=== PATIENT | female | born 1950 | race Two or more races ===

== ENCOUNTER 2022-04-02 11:27 | Outpatient (REF) | payer MEDICAID, OTHER, SELFPAY ==
--- NOTE | ~2022-04-02 | XR_ITS ---
EXAMINATION: XR LUMBOSACRAL SPINE CLINICAL INFORMATION: Low back pain. COMPARISON: None TECHNIQUE: Three views of the lumbosacral spine. FINDINGS: Grade 1 anterolisthesis of L5 on S1. No acute compression deformity. Posterior elements are intact. Disc height loss and facet arthropathy with neural foraminal encroachment noted at L5-S1. SI joints are symmetric. No significant paraspinal soft tissue abnormalities. Scattered atherosclerotic disease of the abdominal aorta. Calcified bodies in the soft tissues of the gluteal region, likely injection sites. XR/XR lumbar spine 2-3V IMPRESSION: 1. No acute compression deformity. 2. Grade 1 anterolisthesis of L5 on S1 with disc height loss, facet arthropathy and neural foraminal encroachment.
== END 2022-04-02 11:28 | disposition home or self-care (01) ==
LOC: HO.XRAY 11:27
PROVIDERS: PCP Internal Medicine; Visit Provider Internal Medicine
DX: M54.50 Low back pain, unspecified (principal); G89.29 Other chronic pain
CPT/HCPCS: 72100

== ENCOUNTER → 2022-05-25 15:00 | Outpatient (REF) | payer MEDICAID, OTHER, SELFPAY ==
--- NOTE | 2022-05-25 15:04 | CA_ITS ---
Transthoracic Echocardiogram Patient (Last, First, Middle): Nelda Woods, Gender: Female Date of : 1950 Age: 72 Procedure Date: 05/25/2022 Procedure Type: Transthoracic Echocardiogram Location: OP Height: 160.02 cm Weight: 92.08 kg BSA: 1.95 m2 Heart Rate: bpm BP: 133 / 80 mmHg Food Server: Referring MD: Janny Gant MD Senior Production Manager: Rhett Jiménez MD Symptoms: I10 HTN, I50.9 HF, LOWER EXTREMITY EDEMA Study Quality: Good ECG Rhythm: Sinus Conclusions: - 1. More LV systolic function with mild LVH with grade 1 diastolic dysfunction 2. Normal cardiac valvular Dopplers 3. Normal RV systolic pressure 4. No gross pericardial effusion Findings Left Ventricle Normal left ventricular size and systolic function. There is mildly increased left ventricular wall thickness. The visually estimated ejection fraction is between 60-65%. Spectral Doppler is indicative of an impaired relaxation filling pattern. E/E prime ratio is <8, consistent with normal filling pressures. Evidence suggests grade I (mild) diastolic dysfunction. Peak GLS is -19.3%, within normal limits. Right Ventricle Normal right ventricular cavity size and systolic function. Atria The left atrium is normal in size. There is a mobile atrial septum noted. Interatrial shunt cannot be excluded. The right atrium is normal in size. Aortic Valve Normal aortic valve structure and function. There is no aortic valve stenosis. There is no aortic valve regurgitation. Mitral Valve Normal mitral valve structure and function. There is trace mitral valve regurgitation. There is no mitral valve stenosis. Pulmonic Valve The pulmonic valve is likely normal. Tricuspid Valve Normal tricuspid valve structure. There is trace tricuspid valve regurgitation. The right ventricular systolic pressure is normal. The right ventricular systolic pressure is 21 mmHg. Normal right atrial pressure. There is no evidence of pulmonary hypertension. Great Vessels All visible segments of the aorta are normal in size. The pulmonary artery was not well visualized. Venous The inferior vena cava is normal in size and collapses greater than 50% with inspiration. Pericardium/Pleural There is no evidence of pericardial effusion. Prior Study Comparison No prior study available for comparison. Measurements 2D Linear Measurements IVSd: 1.32 0.6-0.9/0.6-1.0 cm LVIDd: 3.35 3.9-5.3/4.2-5.9 cm LVIDd Index: 1.72 2.4-3.2/2.2-3.1 cm/m2 LVIDs: 2.21 2.0-3.6 cm LVPWd: 1.37 0.7-1.1 cm Ao Root: 3.20 2.1-3.5 cm LA Diam: 2.90 2.7-3.8/3.0-4.0 cm LAIDs Index: 1.49 1.5-2.3 cm/m2 LV Mass: 190.06 67-162/88-224 g LV Mass Index: 97.47 43-95/49-115 g/m2 LVOT Diam: 2.40 3.0+(-)1.3 cm Mitral Valve MV Pk E: 0.54 MV PK A: 1.13 MV Decel Time: 138.00 E/A: 0.50 E'Lateral: 5.55 E'Medial: 3.15 E/E' Med: 17.00 E/E' Lat: 9.70 PHT: 41.00 MVA PHT: 5.37 Decel Alcorn: 3.87 Aortic Valve AoV Pk Murali: 1.24 AoV Mn Murali: 0.79 AoV VTI: 0.24 AoV Pk Grad: 6.00 Aov Mn Grad: 3.00 BIN Cont.VTI: 3.90 LVOT LVOT Pk Murali: 1.09 LVOT Mn Murali: 0.76 LVOT VTI: 0.21 LVOT Pk Grad: 5.00 LVOT Mn Grad: 3.00 LVOT Diam: 2.40 LVOT Area: 4.52 Diastolic Function MV Pk E: 0.54 MV Pk A: 1.13 E/A: 0.50 E'Medial: 3.15 E/E' Med: 17.00 E' Laterial: 5.55 E/E' Lat: 9.70 Right Ventricle TAPSE (mm): 19.00 Tricuspid Valve TR Pk Murali: 2.14 TR Pk Grad: 18.00 RA Press: 3.00 RVSP: 21.00 Great Vessels Aorta Ao Root-2D: 3.20 2.0-3.7 cm Ao Asc: 3.50 2.1-3.4 cm Pulmonary Valve PV Pk Murali: 1.08 Peak PV Grad: 5.00 Updated in Other Vendor System with Status of Final Rhett Jiménez MD electronically signed on 05/26/2022 12:48:16 PM with status of Final
== END ==
LOC: HO.CARD 15:00
PROVIDERS: Visit Provider Family Medicine
DX: R60.9 Edema, unspecified (principal)
CPT/HCPCS: 93306; 93356

== ENCOUNTER 2024-03-25 09:06 | Outpatient (REF) | payer MEDICAID, SELFPAY ==
--- OUTSIDE RECORDS SUMMARY | 2024-03-25 10:05 | XMS_ITS | Encounter Summary ---
Author Organization [employer] Address [address] [facility] [address] [place] [address] Care Team Providers Care Coroner Transport Technician Name Role Phone Laverne Sauceda MD Primary Care Provider [phone] Reason for Visit * Reason Onset Date Comments chart prep 03/19/2024 Encounter Details Date Type Department Care Team ([facility] st Contact Info) Description 03/19/2024 Telephone [facility] MED & PEDS [address] [place] [address] Laverne Sauceda MD [address] [place] [address] chart prep Social History Tobacco Use Types Packs/Day Years Used Date Smoking Tobacco: Never Passive Smoke Exposure: Never Smokeless Tobacco: Never Alcohol Use Standard Drinks/Week Comments Never 0 (1 standard drink = 0.6 oz pur e alcohol) Depression Answer Date Recorded Patient Health Questionnaire-9 Score 0 03/23/2022 Housing Stability Answer Date Recorded What is your housing situation today? Not on macho e 03/25/[address] you li ve. Do you have problems with any of the following? None of the above 03/25/2023 Food Insecurity Answer Date Recorded Within the past 12 months, y ou worried that your food would run out before you got money to buy more: Never True 12/22/2022 Within the past 12 months,th e food you bought just didn't last and you didn't have enough money to get more: Never True 12/2022 Transportation Answer Date Recorded In the past 12 months, has l ack of transportation kept you from medical appts, meetings, work or from getting things needed for daily living? No 12/22/2022 Utilities Answer Date Recorded In the past 12 months, has t he electric, gas, oil or water company threatened to shut off services in your home? No 12/22/2022 Depression Answer Date Recorded Patient Health Questionnaire-2 Score 0 03/23/2022 Comments Unknown Sex and Gender Information Value Date Recorded Sex Assigned at Female 12/11/2021 10:37 AM EDT Legal Sex Female 10:37 AM EDT Gender Identity Female 03/23/2022 2:52 PM EST Sexual Orientation Straight 03/23/2022 2: 52 PM EST documented as of this encounter Miscellaneous Notes * Telephone Encounter - Vanessa Zhang [place] - 03/19/2024 11:22 AM EST Chart Prep Labs: none Images: none Vaccines due: yes Referrals: none Screenings: none Overdue care gaps: Sbirt, SDOH, PHQ-9 documented in this encounter Plan of Treatment Upcoming Encounters Date Type Department Care Team (Late st Contact Info) Description 04/20/2024 10:00 AM EDT Clinical Support [facility] MED & PEDS [address] [place] [address] documented as of this encounter Visit Diagnoses Not on filedocumented in this encounter Additional Health Concerns Assessment Noted Time PHQ-9 Depression Total Score: 0 03/23/19 23 3:16 PM EST documented as of this encounter Care Teams Coroner Transport Technician Relationship Specialty Start Date End Date Laverne Sauceda MD [address] [place] [address] PCP - General Internal Medicine 07/28/19 documented as of this encounter
--- OUTSIDE RECORDS SUMMARY | 2024-03-25 10:05 | XMS_ITS | Encounter Summary ---
Author Organization [employer] Address [address] [place] [address] Care Team Providers Care Director Communications Name Role Phone Laverne Sauceda MD Primary Care Provider [phone] Reason for Visit * Reason Comments Pre-visit Planning SDOH unable to compl ete, number disconnected Encounter Details Date Type Department Care Team ([facility] st Contact Info) Description 03/16/2024 Patient Outreach [facility] MED & PEDS [address] [place] [address] Laverne Sauceda MD [address] [place] [address] Pre-visit Planning (SDOH unable to complete, number disconnected) Social History Tobacco Use Types Packs/Day Years [...] PM EST documented as of this encounter Progress Notes * Crys Blount - 03/16/2024 4:26 PM EST DAMIÁN Harrell placed outbound call to patient to complete pre-visit planning. No answer at this time. Patient name and were not confirmed. CC unable to leave a message due to number not in service documented in this encounter Plan of Treatment Upcoming Encounters Date Type Department Care Team (Late st Contact Info) Description 04/20/2024 10:00 AM EDT Clinical Support [facility] MED & PEDS [address] [place] [address] documented as of this encounter Visit Diagnoses Not on filedocumented in this encounter Additional Health Concerns Assessment Noted Time PHQ-9 Depression Total Score: 0 03/23/19 23 3:16 PM EST documented as of this encounter Care Teams Director Communications Relationship Specialty Start Date End Date Laverne Sauceda MD [address] [place] [address] PCP - General Internal Medicine 07/28/19 documented as of this encounter
--- OUTSIDE RECORDS SUMMARY | 2024-03-25 10:05 | XMS_ITS | Encounter Summary ---
Author Organization [employer] Address [address] [place] [address] [address], [place] [address] Care Team Providers Care Commercial Loan Underwriter Name Role Phone Laverne Sauceda MD Primary Care Provider [phone] Reason for Visit * Reason Comments Hypertension Joint Pain Encounter Details Date Type Department Care Team ([facility] Contact Info) Description 03/23/2024 11:30 AM EST Office Visit [facility] MED & PEDS [address] [place], [place] [id number] Laverne Sauceda MD [address] [place] [address] Primary hypertension (Primary Dx); Hypercholesterolemia; Epigastric pain; Primary hypertension; Encounter for immunization; Dietary counseling; Exercise counseling; Class 3 severe obesity due to excess calories with serious comorbidity and body mass index (BMI) of 40.0 to 44.9 in adult (CMS/[facility]) Social History Tobacco Use Types Packs/Day Years Used Date Smoking Tobacco: Never Passive Smoke Exposure: Never Smokeless Tobacco: Never Alcohol Use Standard Drinks/Week Comments Never 0 (1 standard drink = 0.6 oz pur e alcohol) Depression Answer Date Recorded Patient Health Questionnaire-9 Score 0 03/23/2024 Patient Health Questionnaire-9 Score 0 03/23/2024 Last PHQ-9: Questionnaire Data Not on file 0 03/23/2024 Housing Stability Answer Date Recorded What is your housing situation today? I have eran fajardo 03/23/[address] you li ve. Do you have problems with any of the following? None of the above 03/23/2024 Food Insecurity Answer Date Recorded Within the past 12 months, y ou worried that your food would run out before you got money to buy more: Never True 03/23/2024 Within the past 12 months,th e food you bought just didn't last and you didn't have enough money to get more: Never True 11/2024 Transportation Answer Date Recorded In the past 12 months, has l ack of transportation kept you from medical appts, meetings, work or from getting things needed for daily living? No 03/23/2024 Utilities Answer Date Recorded In the past 12 months, has t he electric, gas, oil or water company threatened to shut off services in your home? No 03/23/2024 Depression Answer Date Recorded Patient Health Questionnaire-2 Score 0 03/23/2024 Internet Access Answer Date Recorded Internet Access Q1 Yes 03/23/2024 Internet Access Q2 Not on file 03/23/2024 Comments Unknown Sex and Gender Information Value Date Recorded Sex Assigned at Female 12/11/2021 10:37 AM EDT Legal Sex Female 10:37 AM EDT Gender Identity Female 03/23/2022 2:52 PM EST Sexual Orientation Straight 03/23/2022 2: 52 PM EST documented as of this encounter Last Filed Vital Signs Vital Sign Reading Time Taken Comments Blood Pressure 159/100 03/23/2024 11:30 AM EST Pulse 91 03/23/2024 11:30 AM EST Temperature 36.7 ??C (98 ??F) 03/23/2024 11:30 AM EST Respiratory Rate 20 03/23/2024 11:30 AM EST Oxygen Saturation 95% 03/23/2024 11:30 AM EST Inhaled Oxygen Concentration - - Weight 98 kg (216 lb) 03/23/2024 11:30 AM EST Height 154.9 cm (5' 1 ) 03/23/2024 11:30 AM EST Body Mass Index 40.81 03/23/2024 11:30 AM EST documented in this encounter Progress Notes * Laverne Sauceda MD - 03/23/2024 11:30 AM EST Subjective Patient ID: Nelda Woods is a 74 y.o. female who presents for Hypertension and Joint Pain. Hypertension This is a chronic problem. The problem has been waxing and waning since onset. Pertinent negatives include no anxiety, blurred vision, chest pain, malaise/fatigue, neck pain, orthopnea, peripheral edema, PND or shortness of breath. Pt Was in [facility] during 2023. Came back to the [place] 1 month ago. Pt claims compliance to her medication. Came with her son tot he office visit. No fever or other constitutional symptoms reported. H/o chronic joint pain: Low back, hips, Knees, etc. Worse when she is in the cold weather. Denies morning stiffness. Patient Active Problem List Diagnosis Hypertensive disorder Lumbar back pain Hypercholesterolemia Epigastric pain Current Outpatient Medications on File Prior to Visit Medication Sig Dispense Refill Diclofenac Sodium (Voltaren) 1 % gel To use up to 4 times a day on the affected area. 100 g 1 famotidine (Pepcid) 20 MG tablet TAKE ONE TABLET TWICE DAILY 60 tablet 11 losartan (Cozaar) 100 MG tablet TAKE ONE TABLET EVERY MORNING 90 tablet 3 metOLazone (Zaroxolyn) 2.5 MG tablet TAKE ONE TABLET EVERY MORNING 90 tablet 3 simvastatin (Zocor) 20 MG tablet Take 2 tablets (40 mg) by mouth in the morning. 90 tablet 3 simvastatin (Zocor) 40 MG tablet TAKE ONE TABLET DAILY 30 tablet 11 [DISCONTINUED] metoprolol succinate XL (Toprol-XL) 25 MG 24 hr tablet TAKE ONE TABLET EVERY [id number] tablet 3 No current facility-administered medications on file prior to visit. No Known Allergies Review of Systems Constitutional: Negative for malaise/fatigue. Eyes: Negative for blurred vision. Respiratory: Negative for shortness of breath. Cardiovascular: Negative for chest pain, orthopnea and PND. Musculoskeletal: Negative for neck pain. Objective BP (!) 159/100 (BP Location: Left arm, Patient Position: Sitting, BP Cuff Size: Adult long) Pulse91 Temp 98 ??F (36.7 ??C) (Oral) Resp 20 Ht 5' 1 (1.549 m) Wt 216 lb (98 kg) SpO2 95% BMI 40.81 kg/m?? Physical Exam Constitutional: General: She is not in acute distress. Appearance: Normal appearance. She is obese. She is not ill-appearing, toxic- appearing or diaphoretic. Cardiovascular: Rate and Rhythm: Normal rate. Pulmonary: Effort: Pulmonary effort is normal. Neurological: Mental Status: She is alert. Assessment/Plan Diagnoses and all orders for this visit: Primary hypertension Comments: Uncontrolled Increase toprol to 50 mg daily DASH diet Weight loss. Orders: - CDiff Gene PCR; Future - Comprehensive Metabolic Panel; Future - TSH W/Reflex to FT4; Future - Lipid Panel, Standard; Future - Hepatitis C Viral RNA, Quantitative, Real-Time PCR; Future - metoprolol succinate XL (Toprol-XL) 25 MG 24 hr tablet; Take 2 tablets (50 mg) by mouth in the morning. Hypercholesterolemia Comments: Low chol diet Lipid panel. Pt will be contacted w/ results. Epigastric pain Comments: quiescent No acute intervention today. Primary hypertension Comments: As above. toprol increased to 50 mg daily. Orders: - CDiff Gene PCR; Future - Comprehensive Metabolic Panel; Future - TSH W/Reflex to FT4; Future - Lipid Panel, Standard; Future - Hepatitis C Viral RNA, Quantitative, Real-Time PCR; Future - metoprolol succinate XL (Toprol-XL) 25 MG 24 hr tablet; Take 2 tablets (50 mg) by mouth in the morning. Encounter for immunization - FLU VACCINE TRIVALENT (Fluarix) 6 mo + - PCV-20 VACCINE 6 wks + Dietary counseling Dietary Recommendations: Fruits, vegetables, whole grains, protein foods, and fat-free or low-fat dairy products are healthychoices. Eat different types of protein foods in your diet. This can include seafood, lean meats, poultry, beans, peas, lentils, nuts, seeds, soy products, and eggs. Limit foods and beverages higher in added sugars, saturated fat, and sodium. Exercise Recommendations: At least 150 minutes of moderate-intensity physical activity per week, or an equivalent combinationof moderate- and vigorous-intensity activity Exercise counseling Class 3 severe obesity due to excess calories with serious comorbidity and body mass index (BMI) of40.0 to 44.9 in adult (CMS/[facility]) documented in this encounter Plan of Treatment Upcoming Encounters Date Type Department Care Team (Late st Contact Info) Description 04/20/2024 10:00 AM EDT Clinical Support [facility] MED & PEDS [address] [place] [address] Scheduled Orders Name Type Priority Associated Diagnoses Orde r Schedule CDiff Gene PCR Lab Routine Primary hypertension Expected: 03/23/2024 (Approximate), Expires: 03/23/2025 Comprehensive Metabolic Panel Lab Routine Primary hypertension Expected: 03/23/2024 (Approximate), Expires: 03/23/2025 TSH W/Reflex to FT4 Lab Routine Primary hypertension Expected: 03/23/2024 (Approximate), Expires: 03/23/2025 Lipid Panel, Standard Lab Routine Primary hypertension Expected: 03/23/2024 (Approximate), Expires: 03/23/2025 Hepatitis C Viral RNA, Quantitative, Real-Time PCR Lab Routine Primary hypertension Expected: 03/23/2024 (Approximate), Expires: 03/23/2025 documented as of this encounter Visit Diagnoses Diagnosis Primary hypertension- Primary Unspecified essential hypertension Hypercholesterolemia Pure hypercholesterolemia Epigastric pain Abdominal pain, epigastric Encounter for immunization Dietary counseling Dietary surveillance and counseling Exercise counseling Class 3 severe obesity due to excess calories with serious comorbidity and body mass index (BMI) of 40.0 to 44.9 in adult (CMS/HCC) documented in this encounter Additional Health Concerns Assessment Noted Time PHQ-9 Depression Total Score: 0 03/23/19 25 11:33 AM EST documented as of this encounter Care Teams Commercial Loan Underwriter Relationship Specialty Start Date End Date Laverne Sauceda MD [address] [place] [address] PCP - General Internal Medicine 07/28/19 documented as of this encounter
--- OUTSIDE RECORDS SUMMARY | 2024-03-25 10:05 | XMS_ITS | Encounter Summary ---
Author Organization [employer] Address [address] [facility] [address] [place] [address] Care Team Providers Care Lawn Sprinkler Installer Name Role Phone Laverne Sauceda MD Primary Care Provider [phone] Encounter Details Date Type Department Care Team (Latest Contact Info) Description 03/23/2024 Travel Social History Tobacco Use Types Packs/Day Years [...] PM EST documented as of this encounter Plan of Treatment Upcoming Encounters Date Type Department Care Team (Late st Contact Info) Description 04/20/2024 10:00 AM EDT Clinical Support [facility] MED & PEDS [address] [place] [address] documented as of this encounter Visit Diagnoses Not on filedocumented in this encounter Additional Health Concerns Assessment Noted Time PHQ-9 Depression Total Score: 0 03/23/19 25 11:33 AM EST documented as of this encounter Care Teams Lawn Sprinkler Installer Relationship Specialty Start Date End Date Laverne Sauceda MD [address] [place] [address] PCP - General Internal Medicine 07/28/19 documented as of this encounter
--- OUTSIDE RECORDS SUMMARY | 2024-03-25 10:05 | XMS_ITS | Encounter Summary ---
Author Organization [employer] Address [address] [facility] [address] [place] [address] Care Team Providers Care Packerhead Machine Operator Name Role Phone Laverne Sauceda MD Primary Care Provider [phone] Encounter Details Date Type Department Care Team (Latest Contact Info) Description 03/16/2024 Travel Social History Tobacco Use Types Packs/Day [...] Description 04/20/2024 10:00 AM EDT Clinical Support [facility] MED & PEDS [address] [place] [address] documented as of this encounter Visit Diagnoses Not on filedocumented in this encounter Additional Health Concerns Assessment Noted Time PHQ-9 Depression Total Score: 0 03/23/19 23 3:16 PM EST documented as of this encounter Care Teams Packerhead Machine Operator Relationship Specialty Start Date End Date Laverne Sauceda MD [address] [place] [address] PCP - General Internal Medicine 07/28/19 documented as of this encounter
--- OUTSIDE RECORDS SUMMARY | 2024-03-25 10:05 | XMS_ITS | Clinical Summary ---
Author Organization [employer] Address [address] [facility] [address] [place] [address] Care Team Providers Care Environmental Intern Name Role Phone Laverne Sauceda MD Primary Care Provider [phone] Allergies No known active allergies Medications Diclofenac Sodium (Voltaren) 1 % gelIndications:L umbar back pain To use up to 4 times a day on the affected area. 100 g 1 05/12/19 23 Active simvastatin (Zocor) 20 MG tabletIndication s:Hypercholester olemia Take 2 tablets (40 mg) by mouth in the morning. 90 tablet 3 06/16/19 23 Active losartan (Cozaar) 100 MG tabletIndication s:Primary hypertension TAKE ONE TABLET EVERY MORNING 90 tablet 3 06/17/19 24 Active metOLazone (Zaroxolyn) 2.5 MG tabletIndication s:Primary hypertension TAKE ONE TABLET EVERY MORNING 90 tablet 3 06/17/19 24 Active famotidine (Pepcid) 20 MG tabletIndication s:Epigastric pain TAKE ONE TABLET TWICE DAILY 60 tablet 11 06/17/19 24 Active simvastatin (Zocor) 40 MG tabletIndication s:Hypercholester olemia TAKE ONE TABLET DAILY 30 tablet 11 06/17/19 24 Active metoprolol succinate XL (Toprol-XL) 25 MG 24 hr tabletIndication s:Primary hypertension Take 2 tablets (50 mg) by mouth in the morning. 90 tablet 3 03/23/19 25 Active metoprolol succinate XL (Toprol-XL) 25 MG 24 hr tabletIndication s:Primary hypertension TAKE ONE TABLET EVERY MORNING 90 tablet 3 06/17/19 24 025 Discontinued(Re order (will not trigger notification to Pharmacy)) Active Problems Problem Noted Date Diagnosed Date Hypercholesterolemia 03/23/2024 Epigastric pain 03/23/2024 Lumbar back pain 04/19/2022 Hypertensive disorder 03/23/2022 Encounters Date Type Department Care Team Description 03/23/2024 11:30 AM EST Office Visit [facility] [address] [place] [address] Laverne Sauceda MD Primary hypertension (Primary Dx); Hypercholesterolemia; Epigastric pain; Primary hypertension; Encounter for immunization; Dietary counseling; Exercise counseling; Class 3 severe obesity due to excess calories with serious comorbidity and body mass index (BMI) of 40.0 to 44.9 in adult ([facility]) 03/23/2024 Travel 03/19/2024 Telephone [facility] [address] [place] [address] Laverne Sauceda MD chart prep 03/16/2024 Travel 03/16/2024 Patient Outreach [facility] [address] [place] [address] Laverne Sauceda MD Pre-visit Planning (SDOH unable to complete, number disconnected) from Last 3 Months Immunizations Name Administration Dates Next Due Influenza, seasonal, injectable, preservative fr ee 03/23/2024 Pneumococcal Conjugate PCV 20 03/23/2024 Social History Tobacco Use Types Packs/Day Years Used Date Smoking Tobacco: Never Passive Smoke Exposure: Never Smokeless Tobacco: Never Tobacco Cessation:Counseling Given: Not Answered Alcohol Use Standard Drinks/Week Comments Never 0 [...] Orientation Straight 03/23/2022 2: 52 PM EST Last Filed Vital Signs Vital Sign Reading [...] Mass Index 40.81 03/23/2024 11:30 AM EST Plan of Treatment Upcoming Encounters Date Type Department Care Team (Late st Contact Info) Description 04/20/2024 10:00 AM EDT Clinical Support [facility] [address] [place] [address] Health Maintenance Due Date Last Done Comments Hepatitis C Screening 02/11/1966 DTaP/Tdap/Td Vaccines (1 - Tdap) 02/11/1967 Zoster Vaccines (1 of 2) 02/11/1998 RSV Patients and Patients Aged 60 years or older (1 - 1-dose 75+ series) 02/11/2023 Alcohol/Substance Use Screening 03/23/2025 03/23/2024 COVID-19 Vaccine (2023-2 5 season) 2025 Postponed from 10/12 (Patient Refused) Depression Screening 03/23/2025 03/23/2024, 03/23/2024 SDOH Screening 03/23/2025 03/23/2024 Tobacco Screening 03/23/2025 03/23/2024 Lipid Panel 03/30/2027 03/30/2022, 08/20/2019 Influenza Vaccine Completed 03/23/2024 Pneumococcal Vaccine: 50+ Years Completed 03/23/2024 HIB Vaccines Aged Out No longer eligi ble based on patient's age to complete this topic HPV Vaccines Aged Out No longer eligi ble based on patient's age to complete this topic Hepatitis A Vaccines Aged Out No long er eligible based on patient's age to complete this topic Hepatitis B Vaccines Aged Out No long er eligible based on patient's age to complete this topic IPV Vaccines Aged Out No longer eligi ble based on patient's age to complete this topic Meningococcal Vaccine Aged Out No mariajose madelyn eligible based on patient's age to complete this topic RSV under 20 months Aged Out No longe r eligible based on patient's age to complete this topic Rotavirus Vaccines Aged Out No longer eligible based on patient's age to complete this topic Procedures Procedure Name Priority Date/Time Associated Diagnosis Comments LIPID PANEL, STANDARD Routine 03/30/2022 9:42 AM EST Primary hypertension from Last 3 Months or Most Recently Relevant to Health Maintenance Results * (ABNORMAL) Lipid Panel, Standard (03/30/2022 9:42 AM EST) Cholesterol, Total 158 <200 mg/dL [facility] HDL Cholesterol 42(L) > OR = 50 mg/dL [facility] Triglycerides 210(H) <150 mg/dL [facility] Comment: If a non-fasting specimen was collected, consider repeat triglyceride testing on a fasting specimen if clinically indicated. Benjie et al. J. of Clin. Lipidol. 2015;9:129-169. LDL Cholesterol 86 mg/dL (calc) [facility] Comment: Reference range: <100 Desirable range <100 mg/dL for primary prevention; ?? <70 mg/dL for patients with CHD or diabetic patients with > or = 2 CHD risk factors. LDL-C is now calculated using the Wendy calculation, which is a validated novel method providing better accuracy than the Friedewald equation in the estimation of LDL-C. Saurabh FIGUEROA et al. RJ. 2013;310(19): 8768-4342 (http://education.KDS/faq/LGO009) Chol/HDLC Ratio 3.8 <5.0 (calc) [facility] Non-HDL Cholesterol 116 <130 mg/dL (calc) [facility] Comment: For patients with diabetes plus 1 major ASCVD risk factor, treating to a non-HDL-C goal of <100 mg/dL (LDL-C of <70 mg/dL) is considered a therapeutic option. Blood Venous blood specimen / Unknown 03/30/2022 9:42 AM EST 03/30/2022 9:43 AM EST Narrative [facility] - 03/31/2022 7:16 AM EST FASTING:YES FASTING: YES Laverne Sauceda MD LAB BLOOD ORDERABLES Final Result [facility] [address], [place] [address] [facility] [place] [facility] [address] [facility], ([address]) [place] [address] from Last 3 Months or Most Recently Relevant to Health Maintenance Insurance [employer] FULL Care Teams Environmental Intern Relationship Specialty Start Date End Date Laverne Sauceda MD [address] [place] [id number] PCP - General Internal Medicine 07/28/19
--- OUTSIDE RECORDS SUMMARY | 2024-03-25 10:06 | XMS_ITS | Encounter Summary ---
Author Organization [employer] Address [address] [place] [address] Care Team Providers Care Computer Engineering Technician Name Role Phone Laverne Sauceda MD Primary Care Provider [phone] Reason for Referral * Imaging (Routine) - Closed Specialty Diagnoses / Procedures Referred By Contac t Referred To Contact Diagnoses Chronic midline low back pain without sciatica Procedures BD DEXA Axial Laverne Sauceda MD [address] [place] [address] Phone: tel: fax: [facility] [address] [place] [address] Phone: tel: fax: Referral ID Status Reason Start Date Expiration Date Visits Re quested Visits Authorized [id number] Closed 04/04/2022 10/01/2022 1 1 Encounter Details Date Type Department Care Team ([facility] st Contact Info) Description 04/04/2022 Orders Only [facility] [address] [place], [place] [phone] Laverne Sauceda MD [address] [place], [place] [phone] Chronic midline low back pain without sciatica (Primary Dx) Social History Tobacco Use Types Packs/Day Years Used Date Smoking Tobacco: Never Smokeless Tobacco: Never Depression Answer Date Recorded Patient Health Questionnaire-9 Score 0 03/23/2022 Depression Answer Date Recorded Patient Health Questionnaire-2 Score 0 03/23/2022 Comments Unknown Sex and Gender Information Value Date Recorded Sex Assigned at Female 12/11/2021 10:37 AM EDT Legal Sex Female 10:37 AM EDT Gender Identity Female 03/23/2022 2:52 PM EST Sexual Orientation Straight 03/23/2022 2: 52 PM EST COVID-19 Exposure Response Date Recorded In the last 10 days, have yo u been in contact with someone who was confirmed or suspected to have Coronavirus/COVID-19? No / Unsure 03/23/2022 2:49 PM EST documented as of this encounter Plan of Treatment Upcoming Encounters Date Type Department Care Team (Late st Contact Info) Description 04/20/2024 10:00 AM EDT Clinical Support [facility] [address] [place] [address] Scheduled Orders Name Type Priority Associated Diagnoses Orde r Schedule BD DEXA Axial Imaging Routine Chronic midline low back pain without sciatica Expected: 04/04/2022, Expires: 04/04/2023 documented as of this encounter Visit Diagnoses Diagnosis Chronic midline low back pain without sciatica- Primary documented in this encounter Additional Health Concerns Assessment Noted Time PHQ-9 Depression Total Score: 0 03/23/19 23 3:16 PM EST documented as of this encounter Care Teams Computer Engineering Technician Relationship Specialty Start Date End Date Laverne Sauceda MD [address] [place] [address] PCP - General Internal Medicine 07/28/19 documented as of this encounter
[2024-03-26 15:10] LABS: Alanine Aminotransferase 15 U/L (0-31); Albumin Level 3.7 g/dL (3.5-5.0); Alkaline Phosphatase 59 U/L (39-117); Anion Gap 12 (12-20); Aspartate Amino Transferase 23 U/L (5-31); Bilirubin Total 0.6 mg/dL (0.0-1.0); Blood Urea Nitrogen 23 mg/dL (9-16); Calcium 9.6 mg/dL (8.4-10.2); Carbon Dioxide 28 mmol/L (22-29); Chloride 104 mmol/L (96-108); Cholesterol 137 mg/dL (<200); Estimated Glomerular Filt Rate > 60; Glucose Random 101 mg/dL (60-115); HDL Cholesterol 41 mg/dL (>40); LDL Cholesterol Calculated 68 mg/dL (<100); Potassium 3.5 mmol/L (3.3-5.1); Sodium 140 mmol/L (135-145); Triglycerides 140 mg/dL (<150)
[2024-03-26 15:26] LABS: TSH reflex Free T4 1.77 uIU/mL (0.32-4.0)
[2024-03-30 17:23] LABS: HCV Log PCR <1.18 NOT DETECTED Log IU/mL (NOT DETECTED); HepC Viral Load <15 NOT DETECTED IU/mL (NOT DETECTED)
== END 2024-03-25 09:07 | disposition home or self-care (01) ==
LOC: HO.CHCLDS 09:06
PROVIDERS: Visit Provider Internal Medicine
DX: I10 Essential (primary) hypertension (principal)
CPT/HCPCS: 36415; 80053; 80061; 84443; 87522